=== PATIENT | male | born 1940 | race Caucasian/White ===

== ENCOUNTER → 2017-03-31 | Day surgery (SDC) | payer MEDICARE ==
[~2017-03-31] MED LIST: ASPI81TA23 PO; ATOR40TA16 PO; CHLORHEXIDINE GLUCONATE 2 % 1 PACK (2 CLOTHS) TOPICAL PRN; DEXAMETHASONE SOD PHOS 4 MG/ML VIAL IV ONE; DORZ1SOL2 EACH EYE; GLYCOPYRROLATE 1 MG/5 ML SYRINGE IV PUSH ONE; HYDR-3516 PO; HYDR25TA5 PO; LACTATED RINGER'S 1000 ML INJ 1,000 ML ONE; LACTATED RINGER'S 1000 ML IV PRN; LANS30CA PO; LATA0.002 LEFT EYE; LIDOCAINE HCL 1% PF 5 ML SYRINGE OTHER ONE; MELO15TA20 PO; METH500T3 PO; METO25TA3 PO; METOPROLOL TARTRATE 25 MG TAB PO PRN; MIDAZOLAM HCL 2 MG/2 ML VIAL ONE; NEOSTIGMINE 5 MG/5 ML SYRINGE IV PUSH ONE; ONDANSETRON HCL 4 MG/2 ML VIAL IV PUSH ONE; OXYC1TAB63 PO; PHENYLEPH/NS 1000 MCG/10 ML SYR IV ONE; PLAV75TA29 PO; POVIDONE IODINE 5% (ANTISEPSIS KIT) 4 APPLICATIONS EACH NARE PRN; PROPOFOL 200 MG/20 ML AMP IV ONE; ROCURONIUM INJ 50 MG/5 ML VIAL IV ONE; SODIUM CHLORID 0.9% 500 ML IV PRN; ceFAZolin 1,000 MG/NS 100 ML IV SCH
[2017-03-31] MEDS: BUPIVACAINE/EPINEPHRINE 0.25% 50 ML VIAL ONE (11:31)
--- NOTE | 2017-03-31 12:23 | MP ---
cc: TAYA RUBIN M.D. DATE OF SURGERY 03/31/2017 DATE OF 1940 PROCEDURE Implantation of Medtronics Quad electrodes x2 for cluneal nerve stimulation. 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 PROCEDURE NOTE IV was started in the holding area and the patient was given IV antibiotics. Surgical consent form was signed. Surgical site was marked. The patient was taken to the operating room, placed in a prone position and sedated by Anesthesia. All pressure points were checked and padded. Then the lumbar area was prepped with Chloraprep and draped with sterile drapes. The skin in the low lumbar area below his former surgical scar was infiltrated with 0.25% Marcaine containing epinephrine. Then an area in the left flank was also infiltrated. An incision was made in the lumbar area and a Medtronics Quad electrode was placed over the anatomical site of the right and left cluneal nerve and anchored to the underlying fascia using Silastic anchoring device, circumferentially tied with 2-0 Ethibond suture. Then an incision was made in the left flank and a subcutaneous pocket was created. A tunneling device was used to tunnel the stimulating electrodes over to the left flank incision. There they were connected to distal extension wires by tightening Davidson screws and covering the connection with a Silastic cover secured at both ends with 2-0 Ethibond suture. Impedance was checked at the bedside and found to be appropriate in all of the electrodes. Then another tunnel was made to exit the distal extension wires further lateral in the left flank. Then the left flank incision and the lumbar incision were irrigated with Betadine. Closure took place with 3-0 Ethibond in the subcuticular tissue and 3-0 nylon on the skin. The incisions were covered with sterile adhesive dressings and the patient was taken to the recovery room with stable vital signs, neurologically intact. W. MD LUDY Santos/LEONEL /12:07 PM /12:14 PM
[2017-03-31 13:40] VITALS: BP 130/76; PULSE 68; RESP 16; TEMP 98; O2SAT 97
== END | disposition home or self-care (01) ==
LOC: PHSDC 09:11
PROVIDERS: ATTEND Pain Medicine Interventional Pain Medicine
DX: M96.1 Postlaminectomy syndrome, not elsewhere classified (principal); M54.9 Dorsalgia, unspecified
CPT/HCPCS: 00300; 64561; C1778; J0690; J1100; J2250; J2370; J2405; J2710; J7120

== ENCOUNTER → 2017-04-10 | Day surgery (SDC) | payer MEDICARE ==
[~2017-04-10] VITALS: Ht 172.7 cm; Wt 75.0 kg
[~2017-04-10] MED LIST changes: +BUPIVACAINE/EPINEPHRINE 0.25% 50 ML VIAL ONE; -DEXAMETHASONE SOD PHOS 4 MG/ML VIAL IV ONE; -GLYCOPYRROLATE 1 MG/5 ML SYRINGE IV PUSH ONE; -MIDAZOLAM HCL 2 MG/2 ML VIAL ONE; -NEOSTIGMINE 5 MG/5 ML SYRINGE IV PUSH ONE; -ONDANSETRON HCL 4 MG/2 ML VIAL IV PUSH ONE; -ROCURONIUM INJ 50 MG/5 ML VIAL IV ONE; +SODIUM CHLORIDE 0.9% INJ 100 ML ONE; +VANCOMYCIN 500 MG VIAL ONE; +VANCOMYCIN 500 MG/NS 100 ML IV PRN; +ceFAZolin INJ 1,000 MG VIAL ONE; +ePHEDrine/NS 25 MG/5 ML SYRINGE IV ONE
[2017-04-10 15:30] VITALS: BP 115/70; PULSE 74; RESP 16; TEMP 97.7; O2SAT 97
--- NOTE | 2017-04-11 11:56 | MP ---
cc: TAYA RUBIN M.D. DATE OF SURGERY 04/10/2017 DATE OF 1940 PROCEDURE Implantation of Medtronic dual-channel rechargeable pulse generator for spinal cord stimulation. PREPROCEDURE DIAGNOSIS Intractable back pain. POSTPROCEDURE DIAGNOSIS Intractable back pain. PROCEDURE NOTE An IV was started in the holding area. The patient was given IV antibiotics. The surgical consent was signed. The surgical site was marked. The patient was taken to the operating room, placed in the right lateral decubitus position. All pressure points were checked and padded. He was sedated and monitored by Anesthesia. The lumbar area and left abdominal area were prepped with ChloraPrep, draped with sterile drapes and then covered with Ioban. The left flank incision and the left subcostal area was infiltrated with 0.25% Marcaine containing epinephrine. The left flank incision was opened. The distal extension wires were disconnected from the stimulating electrodes by loosening Davidson screws. An incision was made in the subcostal area and a subcutaneous pocket was created. A tunneling device was used to tunnel distal extension wires from the abdominal incision to the left flank incision. The distal extension wires were connected to the stimulating lead by tightening Davidson screws and then covering the connection with a Silastic cover secured at both ends with 2-0 Ethibond suture. A Medtronic dual-channel rechargeable pulse generator was connected to the distal extension wire by placing the wire into the top receptacle on the battery and the Davidson screw tightened. A dummy plug was placed in the lower receptacle and the Davidson screw was tightened. Impedance was checked at the bedside and found to be appropriate in all of the electrodes. Each incision was irrigated with Betadine. The pulse generator was placed in the subcutaneous pocket and anchored to the underlying fascia using two 2-0 Ethibond sutures. The letter side of the pulse generator was facing the skin. Then both incisions were closed with 2-0 Monocryl in the subcuticular tissue and 2-0 nylon on the skin. The incisions were covered with sterile adhesive dressings and the patient was taken to the recovery room with stable vital signs, neurologically intact. WMD LUDY Arguello/VELMA /2:52 PM /11:31 AM
== END | disposition home or self-care (01) ==
LOC: PHSDC 09:59
PROVIDERS: ATTEND Pain Medicine Interventional Pain Medicine
DX: M54.9 Dorsalgia, unspecified (principal); M96.1 Postlaminectomy syndrome, not elsewhere classified
CPT/HCPCS: 00300; 63685; C1767; J0690; J2370; J3370; J7120